=== PATIENT | male | born 2000 | race Hispanic/Latino ===

== ENCOUNTER 2025-01-06 03:39 | Emergency (ER) | payer SELFPAY ==
[~2025-01-06] VITALS: Ht 162.6 cm; Wt 137.4 kg
--- NOTE | 2025-01-06 04:16 | ERN ---
ED Note History of Present Illness Stated Complaint: C/O TOOTHACHE, LEFT LOWER SIDE Chief Complaint: Tooth Ache/Pain Time Seen by MD: 04:00 Dictation: This is a 24-year-old male who came into the ER complaining of severe left lower jaw toothache. He began experiencing that for the past 4 5 days and pain got so worse that he could not sleep and hence he came in for evaluation he did not report any high fevers or chills. He has chipped molar teeth in the lower jaw especially in the left side. No facial swelling or jaw swelling, patient indicated that he has never seen a dentist or had any kind of dental cleaning. Patient does not have any flossing practices. Temperature 98.3 pulse 62 respirations 20 blood pressure 144/73 with a pulse oximetry of 96% on room air Allergies: Coded Allergies: No Known Allergies (Unverified Allergy, Unknown, 01/06/25) Home Meds Active Scripts Ketorolac Tromethamine (Toradol) 10 Mg Tab, 10 MG PO QID for pain for 5 Days, #20 TAB 0 Refills Prov:DERICK DELGADO MD 01/06/25 Amoxicillin/Potassium Clav (Augmentin 500-125 Tablet) 500 Mg-125 Mg Tablet, 1 TAB PO BID for 10 Days, #20 TAB 0 Refills Prov:DERICK DELGADO MD 01/06/25 Past Medical History Past Medical History: No Pertinent History Surgical History: None Family History: Negative RN Note Reviewed/Agreed w/PFSH: Yes Review of System Dictation Constitutional: Negative for fever,chills, and weight loss Eyes: Negative for injury, pain,redness, and discharge ENT: Negative for injury,pain or swelling positive for lower jaw molar tooth pain Cardiovascular: Negative for chest pain, palpitations, and edema Respiratory: Negative for shortness of breath, cough, and wheezing, Abdomen/GI: Negative for abdominal pain, nausea, vomiting, diarrhea, and constipation Back: Negative for injury and pain : Negative for injury, bleeding and discharge MS/Extremity: Negative for injury and deformity Skin: Negative for rash, and discoloration Neuro: Negative for headache, weakness, numbness, tingling, and seizure Psych: Negative for suicide ideation, homicidal ideation, and hallucinations Initial Vital Sign VS Vital Signs Date Time Temp Pulse Resp B/P (MAP) Pulse Ox O2 Delivery O2 Flow Rate FiO2 01/06/25 03:42 98.2 62 20 144/73 96 Room Air 01/06/25 03:59 0 21 Physical Exam Dictation General: awake, alert, NAD extremely morbidly obese Head/Face: Normocephalic, atraumatic, no facial or jaw swelling Eyes: PERRL, EOMI, vision at baseline ENT: oral cavity clear, TMs clear, gum inflammation and multiple cavities of the lower jaw molar teeth more on the left side but I did not see any bleeding Neck: Trachea midline, supple, no nuchal rigidity Cardiovascular: RRR, normal S1/S2, No MRGs, no JVD Respiratory: CTAB, no respiratory distress, No rales or wheezes Abdomen: Soft, non-tender, non-distended, normal bowel sounds, no guarding or rebound. Skin: Warm, dry, normal turgor, no rash MS/Extremity: Pulses equal, no cyanosis, neurovascular intact, FROM Neuro: COAx4, GCS 15, strength 5/5, CN 2-12 intact, normal cerebellar exam, normal gait, Psych: Normal behavior, mood, and affect normal Extremities-trace edema without any palpable cords, Homans sign is negative ED Course ED Course Orders Procedure Category Date Status Time Ketorolac 60mg/2ml PHA 01/06/25 Complete (Toradol 60mg/2ml) 04:30 Current Medications Medications (Trade) Dose Ordered Sig/Joce Route PRN Reason Start Time Stop Time Status Last Admin Dose Admin Ketorolac Tromethamine (toRADol 60MG/ 2ML) 60 mg ONCE ONCE IM 01/06/25 04:30 01/06/25 04:31 DC 01/06/25 04:30 Vital Signs Date Time Temp Pulse Resp B/P (MAP) Pulse Ox O2 Delivery O2 Flow Rate FiO2 01/06/25 05:05 98.2 58 17 154/88 98 Room Air* 0 21 01/06/25 03:59 98.4 55 20 158/91 97 Room Air* 0 21 01/06/25 03:42 98.2 62 20 144/73 96 Room Air We will administer medications according to the patient's complaint. Once the results are available, will review and personally interpreted the labs to rule out any acute life-threatening emergency the trach require immediate intervention and treatment. I will then re-evaluate the patient after treatment and diagnostic exams have return to determine whether the patient requires any further testing, can safely be discharged home or need further admission to hospital for additional treatment and evaluation. Patient has never seen a dentist in his life I updated him and educated him on dental hygiene cavities that need to be taken care off so that the infection does not spread to the mandible and or to brain. I also encouraged him to use the mouthwash and floss frequently every time he eats. Verbalized full understanding I also educated him to comply with antibiotics for the whole course Medical Decision Making MDM Differential diagnosis: Dental caries, gingivitis, periodontitis, root canal infection, Rationale: Tests considered and ordered secondary to shared decision making include: Previous outside records reviewed: Old ER visits. Risk of complication and/or morbidity or mortality of patient management: None Medications-Per medication reconciliation Need for hospitalization: Patient does not meet criteria for hospitalization. Need for emergency major/minor surgery: No There are no social concerns with this patient. Prescription drug management Prescriptions will include symptomatic care Patient's prior external medical records from other ER visits were reviewed by me as indicated. Prior testing and results from previous visits were reviewed. Prior tests were taken into account with medical decision making and resource utilization, independent historian/historians were used to obtain complete medical history. I independently interpreted the test that were performed, results were reviewed by me and considered findings on radiology if ordered. Medical management and examination interpretation discussions were had by me with other qualified healthcare professionals as indicated for the patient's care. Problem List Problem List: (1) Infected tooth (2) Toothache (3) Periodontitis (4) Dental caries DX & DISP Disposition: Discharge Departure Impression: Primary Impression: Toothache Additional Impressions: Dental caries, Periodontitis, Infected tooth Condition: Stable Scripts Ketorolac Tromethamine (Toradol) 10 Mg Tab 10 MG PO QID for pain for 5 Days, #20 TAB 0 Refills Prov: DERICK DELGADO MD 01/06/25 Amoxicillin/Potassium Clav (Augmentin 500-125 Tablet) 500 Mg-125 Mg Tablet 1 TAB PO BID for 10 Days, #20 TAB 0 Refills Prov: DERICK DELGADO MD 01/06/25 Additional Instructions: Patient and the caregiver have been informed of all the diagnostic tests and the imaging conducted during the today's visit to the emergency room and has verbalized understanding of the results I have personally reviewed and interpreted all diagnostic exams performed here in the ER today as well as the vital signs documented by the nursing staff. The patient is now being discharged to home and should follow up with the primary care physician or the specialist as directed by the ER staff. Follow-up with primary care provider in 1 to 2 days. Take medications as directed here in the emergency room. Okay to continue home medications unless otherwise discussed during your visit in the emergency room today. Return to your nearest emergency room if symptoms worsen or if there is no improvement. Call 911 if you need immediate assistance. Take Tylenol or Motrin [id number] as needed and if no contraindications are present. Increase oral hydration. A wound culture or urine culture was ordered here in the emerge ncy room department please follow-up with primary care provider and advise them to get repeat ports from our facility. If you had any Saúl wrap/splints that were applied here, please do not remove them until you see your primary care or specialty. Referrals: SELF,REFERRAL (PCP) DERICK DELGADO MD Jan 06, 2025 04:16
[2025-01-06] MEDS ORDERED: KETO10 PO (04:32)
[2025-01-06] MEDS ORDERED: AMOX-426 PO (04:32)
[2025-01-06 05:05] VITALS: BP 154/88; PULSE 58; RESP 17; TEMP 98.2; O2SAT 98
== END 2025-01-06 05:11 | disposition home or self-care (01) ==
LOC: EDH 03:39
DX: K02.9 Dental caries, unspecified (principal); K05.30 Chronic periodontitis, unspecified; K04.7 Periapical abscess without sinus
CPT/HCPCS: 99283; 96372; J1885